=== PATIENT | male | born 1995 | race Caucasian/White ===

== ENCOUNTER 2023-04-22 21:14 | Emergency (ER) | payer MEDICAID ==
[~2023-04-22] VITALS: Ht 172.7 cm; Wt 71.0 kg
[2023-04-22 21:21] VITALS: BP 142/69; PULSE 98; RESP 18; TEMP 98.3; O2SAT 100
[2023-04-22] MEDS ORDERED: ACET-1025 PO (22:54)
[2023-04-22] MEDS ORDERED: CYCL-1 PO (22:54)
[2023-04-22] MEDS: acetaminophen 325mg tablet PO ONE (22:57)
[2023-04-22] MEDS: cyclobenzaprine 10mg tablet PO ONE (22:57)
== END 2023-04-22 23:23 | disposition home or self-care (01) ==
LOC: ER 21:15
DX: S29.019A Strain of muscle and tendon of unspecified wall of thorax, initial encounter (principal); Z79.899 Other long term (current) drug therapy; X58.XXXA Exposure to other specified factors, initial encounter; Y93.89 Activity, other specified; Y92.89 Other specified places as the place of occurrence of the external cause; Y99.8 Other external cause status
CPT/HCPCS: 99283